=== PATIENT | female | born 1975 | race Caucasian/White ===

== ENCOUNTER 2021-07-25 16:17 | Emergency (ER) | payer OTHER ==
[2021-07-25 16:32] VITALS: BP 141/85
--- OUTSIDE RECORDS SUMMARY | 2021-07-25 16:42 | EXTERNAL MEDICAL SUMMARY RPT | Continuity of Care Document ---
:1975 Author Organization [facility] Address [address] [place] [address] Phone Care Team Providers Name Role Phone OR, Krista Fitzgerald RN, Unavailable Unavailable Allergies No information. Encounters No information. Medications date description facility [id number] diclofenac sodium All [id number] hydrocortisone-pramoxine All [id number] loratadine All [id number] fluticasone propionate All [id number] sodium,potassium,mag sulfates All Problems date description facility [id number] Unspecified lump in unspecified breast All [id number] Unspecified hemorrhoids All [id number] Unspecified hemorrhoids without mention of complication All 20210524 Plantar fasciitis All [id number] Plantar fascial fibromatosis All [id number] Personal history of other genital syste m and obstetric All disorders 20210524 Personal history of gestational diabete s All 20210524 Lump or mass in breast All 20210524 History of gestational diabetes mellitu s All 20210524 Hemorrhoids All [id number] Eczema All 20210524 Dermatitis, unspecified All 20210524 Contact dermatitis and other eczema, un specified cause All [id number] Breast lump All Results No information.
[2021-07-25] MEDS ORDERED: TETANUS/DIPHTHERIA/PERTUSSIS 0.5 ML SYRINGE IM ONE (16:49)
--- NOTE | 2021-07-25 16:50 | ED Physician Documentation ---
PD HPI UPPER EXT INJURY - Stated complaint Stated Complaint: R HAND INJ - Chief complaint Chief Complaint: Trauma Ext - History obtained from History obtained from: Patient - Additonal information Additional information: Right-handed woman was taking her yard waste container out and tripped and fell over her lid. She landed on both knees and the right hand. The knees do not hurt much but she has significant pain of the third through fifth digits of the right hand. No other injuries. Declines pain medication on initial evaluation. Review of Systems Constitutional: reports: Reviewed and negative Eyes: reports: Reviewed and negative Cardiac: reports: Reviewed and negative Respiratory: reports: Reviewed and negative PD PAST MEDICAL HISTORY - Past Surgical History Past Surgical History: No - Present Medications Home Medications: Ambulatory Orders Medication Instructions Recorded Confirmed cephALEXin [Keflex] 500 mg PO Q6H 7 Days capsule 04/24/14 - Allergies Allergies/Adverse Reactions: Allergies Allergy/AdvReac Type Severity Reaction Status Date / Time No Known Drug Allergies Allergy Verified 07/25/21 16:32 - Social History Does the pt smoke?: No Smoking Status: Never smoker Does the pt drink ETOH?: No Does the pt have substance abuse?: No PD ED PE NORMAL - Vitals Vital signs reviewed: Yes - General General: Alert and oriented X 3, No acute distress - Neck Neck: Supple, no meningeal sign, No bony TTP - Extremities Extremities: Other (She has abrasions over the PIPs of the third and fourth fingers of the right hand and quite tender there. Also some tenderness over the fifth digit. First and second digits are nontender. Both knees have very small abrasions but nontender with full range of motion.) - Neuro Neuro: Alert and oriented X 3, Normal speech - Psych Psych: Normal mood, Normal affect Results - Vitals Vitals: Vital Signs - 24 hr 07/25/21 16:27 Temperature 36.4 C L Heart Rate 77 Respiratory 14 Rate Blood Pressure 141/85 H O2 Saturation 95 Oxygen O2 Source Room air - Rads (name of study) Three-view x-ray of the right hand is unremarkable Radiology: EMP read contemporaneously PD MEDICAL DECISION MAKING - ED course ED course: 46-year-old woman with hand abrasions and tenderness after falling. She hit her knees but those really are not tender they do have tiny abrasions. The x-ray of the hand was unremarkable and the wounds on the dorsum of her fingers were cleansed and dressed. Tetanus was updated. Departure - Departure Disposition: 01 Home, Self Care Clinical Impression: Contusion of right hand Qualifiers: Encounter type: initial encounter Qualified Code(s): S60.221A - Contusion of right hand, initial encounter Abrasion of right hand Qualifiers: Encounter type: initial encounter Qualified Code(s): S60.511A - Abrasion of right hand, initial encounter Condition: Good Record reviewed to determine appropriate education?: Yes Instructions: ED Abrasion Comments: You can wash the abrasions with soap and water. Return for new or worsening symptoms, ice and elevate. Follow-up with your doctor in a week if not better. Discharge Date/Time: 07/25/21 17:40
--- NOTE | 2021-07-25 18:03 | XRAY Report ---
PROCEDURE: Hand 3 View RT INDICATIONS: Trauma, pain TECHNIQUE: 3 views of the hand(s) acquired. COMPARISON: FINDINGS: Bones: No fractures or dislocations. No suspicious bony lesions. Soft tissues: No suspicious soft tissue calcifications. IMPRESSION: Unremarkable right hand radiographs Reviewed by: Jarrett Baldwin MD on 07/25/2021 5:02 PM [facility] Approved by: Jarrett Baldwin MD on 07/25/2021 5:02 PM [facility] Station ID: [id number]
== END 2021-07-25 17:40 | disposition home or self-care (01) ==
LOC: ED 16:17
DX: S09.90XA Unspecified injury of head, initial encounter (principal); W01.198A Fall on same level from slipping, tripping and stumbling with subsequent striking against other object, initial encounter; Y93.H9 Activity, other involving exterior property and land maintenance, building and construction; Z23 Encounter for immunization; Z71.85 Encounter for immunization safety counseling
CPT/HCPCS: 90471; 99282; 99283

== ENCOUNTER 2021-08-31 06:34 | Day surgery (SDC) | payer OTHER ==
[2021-08-31] MEDS ORDERED: LACTATED RINGERS 1,000 ML IV ONE ×2 (07:02→08:04)
[2021-08-31] MEDS ORDERED: PROPOFOL 500 MG/50 ML 500 MG/50 ML VIAL ONE (07:09)
--- NOTE | 2021-08-31 07:09 | ANESTHESIA ---
Pre-Anesthesia VS, & Labs - Diagnosis screening - Procedure colonoscopy Vital Signs: Temp Pulse Resp BP Pulse Ox 36.4 C L 75 14 129/96 H 97 08/31/21 06:35 08/31/21 06:35 08/31/21 06:35 08/31/21 06:35 08/31/21 06:35 Height: 5 ft 2 in Weight (kg): 78.5 kg Body Mass Index: 31.6 BMI Classification: Obese - NPO >8 hours - Is Patient ?: No - Lab Results Current Lab Results: Laboratory Tests 08/31/21 06:56: POC Whole Bld Glucose 148 H Lab results reviewed: Yes Home Medications and Allergies Home Medications: Ambulatory Orders Atorvastatin [Lipitor] 10 mg PO DAILY 08/30/21 metFORMIN [Glucophage] 500 mg PO DAILY 08/30/21 Atorvastatin [Lipitor] 10 mg PO DAILY 08/30/21 metFORMIN [Glucophage] 500 mg PO DAILY 08/30/21 Allergies/Adverse Reactions: Allergies Allergy/AdvReac Type Severity Reaction Status Date / Time No Known Drug Allergies Allergy Verified 07/25/21 16:32 Anes History & Medical History - Anesthetic History Anesthesia Complications: reports: No previous complications Family history of Anesthesia Complications: Denies Family history of Malignant Hyperthermia: Denies - Medical History Cardiovascular: reports: High cholesterol Pulmonary: reports: None Gastrointestinal: reports: None Urinary: reports: None Musculoskeletal: reports: None Endocrine/Autoimmune: reports: Type 2 diabetes Skin: reports: Eczema Smoking Status: Never smoker - Surgical History Gynecologic: reports: Tubal ligation, Other Exam General: Alert, Oriented x3, Cooperative Dental: WNL Mouth Openin Fingerbreadth Neck Mobility: Normal Mallampati classification: II Thyromental Distance: 4-6 cm Respiratory: Lungs clear, Normal breath sounds, No respiratory distress Cardiovascular: Regular rate Neurological: Normal speech Mental/Cognitive Status: Alert/Oriented X3, Normal for patient Plan Anesthesia Type: Total IV Consent for Procedure(s) Verified and Reviewed: Yes Code Status: Attempt Resuscitation ASA classification: 2-Mild systemic disease Is this case an emergency?: No
[2021-08-31] MEDS ORDERED: MIDAZOLAM 2 MG/2 ML VIAL ONE (07:10)
--- NOTE | 2021-08-31 07:22 | HISTORY & PHYSICAL EXAMINATION ---
Chief Complaint - Chief Complaint Chief Complaint: here for colon cancer screening History of Present Illness - History Obtained From Records Reviewed: yes History obtained from: pt Exam Limitations: none - History of Present Illness HPI Comment/Other: here for colon cancer screening. no problems. negative family history. History - Past Medical History Cardiovascular: reports: High cholesterol Respiratory: reports: None Endocrine/Autoimmune: reports: Type 2 diabetes GI: reports: None : reports: None HEENT: reports: None Psych: reports: None Musculoskeletal: reports: None Derm: reports: Eczema MRSA Hx?: No - Past Surgical History /[employer]APE[employer] SALES [employer]: reports: Tubal ligation, Other Meds/Allgy - Home Medications Home Medications: Ambulatory Orders Medication Instructions Recorded Confirmed Atorvastatin [Lipitor] 10 mg PO DAILY 08/30/21 08/30/21 metFORMIN [Glucophage] 500 mg PO DAILY 08/30/21 08/30/21 - Allergies Allergies/Adverse Reactions: Allergies Allergy/AdvReac Type Severity Reaction Status Date / Time No Known Drug Allergies Allergy Verified 07/25/21 16:32 Review of Systems - Other Findings Other Findings: 10 pt ros as above otherwise unremarkable Exam - Vital Signs Reviewed Vital Signs: Yes Vital Signs: Vital Signs x48h Temp Pulse Resp BP Pulse Ox 08/31/21 06:35 36.4 C L 75 14 129/96 H 97 - Physical Exam General Appearance: positive: No acute distress, Alert Eyes Bilateral: positive: PERRL, EOMI, No scleral icterus ENT: positive: No signs of dehydration Neck: positive: No JVD, Trachea midline Respiratory: positive: No respiratory distress Cardiovascular: positive: Regular rate & rhythm Abdomen: positive: Non-tender, No distention Neurologic/Psychiatric: positive: Oriented x3 Conclusion/Plan - Problem List (1) Colon cancer screening Conclusion/Plan: plan colonoscopy. parq held and consent obtained - Lab Results Lab results reviewed: Yes
[2021-08-31] MEDS ORDERED: PROPOFOL 200 MG/20 ML VIAL IVP ONE (07:59)
[2021-08-31 08:42] VITALS: BP 131/95
--- NOTE | 2021-08-31 09:50 | ANESTHESIA POST OP EVALUATION ---
Anesthesia Post Eval - Post Anesthesia Eval Vitals: Last Vital Signs Temp 36.3 C L 08/31/21 08:41 Pulse 67 08/31/21 08:41 Resp 16 08/31/21 08:41 BP 131/95 H 08/31/21 08:41 Pulse Ox 100 08/31/21 08:41 CV Function Including HR & BP: Stable Pain Control: Satisfactory Nausea & Vomiting: Negative Mental Status: Baseline Respiratory Status: Airway Patent Hydration Status: Satisfactory Anesthesia Complications: None
== END 2021-08-31 06:35 | disposition home or self-care (01) ==
LOC: SDS 06:34
PROVIDERS: ATTEND Surgery
PROC: 0DBN8ZX Excision of Sigmoid Colon, Via Natural or Artificial Opening Endoscopic, Diagnostic (ICD-10-PCS; 2021-08-31)
PROC: 0DBP8ZX Excision of Rectum, Via Natural or Artificial Opening Endoscopic, Diagnostic (ICD-10-PCS; principal; 2021-08-31 07:30)
DX: Z12.11 Encounter for screening for malignant neoplasm of colon (principal); D12.5 Benign neoplasm of sigmoid colon; D12.8 Benign neoplasm of rectum; E11.9 Type 2 diabetes mellitus without complications; Z68.31 Body mass index [BMI] 31.0-31.9, adult; Z79.84 Long term (current) use of oral hypoglycemic drugs
CPT/HCPCS: 45385; J7120

== ENCOUNTER 2023-03-18 08:15 | Outpatient (CLI) | payer OTHER ==
[2023-03-18 11:56] LABS: BASOPHILS % (AUTO) 0.4 %; EOSINOPHILS # (AUTO) 0.1 10^3/uL (0.0-0.7); EOSINOPHILS % (AUTO) 1.3 %; HCT - HEMATOCRIT 43.2 % (37.0-47.0); LYMPHOCYTES # (AUTO) 1.3 10^3/uL (1.5-3.5); LYMPHOCYTES % (AUTO) 13.7 %; MEAN CORPUSCULAR HEMOGLOBIN 28.3 pg (27.0-31.0); MEAN CORPUSCULAR HGB CONC 32.4 g/dL (32.0-36.0); MEAN CORPUSCULAR VOLUME 87.3 fL (81.0-99.0); MEAN PLATELET VOLUME 9.3 fL (7.9-10.8); MONOCYTES # (AUTO) 0.4 10^3/uL (0.0-1.0); MONOCYTES % (AUTO) 3.7 %; NEUTROPHILS # (AUTO) 7.8 10^3/uL (1.5-6.6); NEUTROPHILS % (AUTO) 80.7 %; PLT - PLATELET COUNT 271 10^3/uL (130-450); RED BLOOD COUNT 4.95 10^6/uL (4.20-5.40); RED CELL DISTRIBUTION WIDTH 12.6 % (12.0-15.0); WHITE BLOOD COUNT 9.6 x10^3/uL (4.8-10.8)
[2023-03-18 12:34] LABS: ALBUMIN 4.3 g/dL (3.2-5.5); ALBUMIN/GLOBULIN RATIO 1.3 (1.0-2.2); ALKALINE PHOSPHATASE 49 IU/L (42-121); ALT ALANINE AMINOTRANSFERASE 24 IU/L (10-60); AST ASPARTATE AMINOTRANSFERASE 15 IU/L (10-42); BILIRUBIN,TOTAL 0.5 mg/dL (0.2-1.0); BUN - BLOOD UREA NITROGEN 11 mg/dL (6-20); CARBON DIOXIDE - CO2 25 mmol/L (21-32); CHLORIDE 102 mmol/L (101-111); CHOLESTEROL 166 mg/dL; CREATININE 0.6 mg/dL (0.6-1.3); GFR - MDRD 106 (>89); GLUCOSE 130 mg/dL (74-104); HDL CHOLESTEROL 55 mg/dL; LDL CHOLESTEROL,CALCULATED 84 mg/dL; LDL/HDL RATIO 1.5 (<4.4); POTASSIUM 3.7 mmol/L (3.5-4.5); SODIUM 139 mmol/L (135-145); TOTAL PROTEIN 7.5 g/dL (6.4-8.9); TRIGLYCERIDES 134 mg/dL (48-352); VLDL CHOLESTEROL 27 mg/dL
[2023-03-18 12:47] LABS: ESTIMATED AVERAGE GLUCOSE 148 mg/dL (70-100); HEMOGLOBIN A1c% 6.8 % (4.27-6.07)
[2023-03-18 19:47] LABS: THYROID STIMULATING HORMONE 1.43 uIU/mL (0.34-5.60)
== END 2023-03-18 08:30 | disposition home or self-care (01) ==
LOC: LAB.N 08:15
PROVIDERS: ATTEND Specialist
DX: E11.9 Type 2 diabetes mellitus without complications (principal)
CPT/HCPCS: 36415; 80053; 80061; 83036; 83721; 84443; 85025

== ENCOUNTER 2023-03-25 14:06 | Emergency (ER) | payer OTHER ==
[2023-03-25 14:38] VITALS: O2SAT 100
--- NOTE | 2023-03-25 14:40 | ED Physician Documentation ---
PD HPI URI - Stated complaint Stated Complaint: COUGH,SORE THROAT,WEAKNESS - Chief complaint Chief Complaint: Heent - History obtained from History obtained from: Patient - History of Present Illness Timing - onset: How many weeks ago (2) Timing duration: Weeks (2) Timing details: Gradual onset, Still present (persistent cough and sore throat with dyspnea and whezing for 2 weeks. Seen [facility] twice with neg COVID/RSV testing and rapid strep tests. Rx with Albuterol and codeine cough medication without improvement overall, but less wheezing with inhaler.) Associated symptoms: Sinus pain, Sore throat, Dry cough, Dyspnea Contributing factors: No: Sick contact, Travel, Immunocompromised, COPD / asthma Similar symptoms before: Has not had sx before Recently seen: Clinic (walk in clinic) Review of Systems Constitutional: reports: Myalgias. denies: Fever, Chills Nose: reports: Sinus pressure / pain Throat: reports: Sore throat Cardiac: denies: Chest pain / pressure Respiratory: reports: Dyspnea, Cough, Wheezing GI: denies: Vomiting, Diarrhea Skin: denies: Rash, Lesions PD PAST MEDICAL HISTORY - Past Medical History Past Medical History: No Respiratory: None Neuro: None - Past Surgical History Past Surgical History: No - Present Medications Home Medications: Ambulatory Orders Medication Instructions Recorded Confirmed Atorvastatin [Lipitor] 10 mg PO DAILY 08/30/21 08/30/21 metFORMIN [Glucophage] 500 mg PO DAILY 08/30/21 08/30/21 Amoxicillin 500 mg PO TID #15 cap 03/25/23 dexAMETHasone [Decadron] 4 mg PO DAILY #5 tablet 03/25/23 guaiFENesin/CODEINE [Robitussin AC] 10 ml PO Q6H PRN #240 ml 03/25/23 - Allergies Allergies/Adverse Reactions: Allergies Allergy/AdvReac Type Severity Reaction Status Date / Time No Known Drug Allergies Allergy Verified 03/25/23 14:26 - Social History Does the pt smoke?: No Smoking Status: Never smoker Does the pt drink ETOH?: No Does the pt have substance abuse?: No - Immunizations Immunizations are current?: Yes - POLST Patient has POLST: No PD ED PE NORMAL - Vitals Vital signs reviewed: Yes - General General: Alert and oriented X 3, No acute distress, Well developed/nourished - HEENT HEENT: Ears normal, Pharynx benign - Neck Neck: Supple, no meningeal sign, No adenopathy - Cardiac Cardiac: RRR, No murmur - Respiratory Respiratory: No respiratory distress. No: Clear bilaterally (some exp wheezing noted. no coarse sounds. ) - Derm Derm: Normal color, Warm and dry Results - Vitals Vitals: Oxygen O2 Source Room air PD Medical Decision Making - ED course Complexity details: considered differential (has had ongoing cough and sore throat for 2-3 weeks with negative COVID and RSV tests, and neg strep test. Has persistent symptoms despite Tessalon and Albuterol. ), d/w patient Departure - Departure Disposition: Home, Self Care Clinical Impression: Cough, Dyspnea, Lower resp. tract infection Condition: Stable Record reviewed to determine appropriate education?: Yes Prescriptions: Amoxicillin 500 mg PO TID #15 cap dexAMETHasone [Decadron] 4 mg PO DAILY #5 tablet guaiFENesin/CODEINE [Robitussin AC] 10 ml PO Q6H PRN #240 ml PRN Reason: Cough Comments: Continue using your albuterol inhaler 2 to 3 puffs 4 times daily at home for the next several days to week. Use a spacer chamber as that seemed to provide a better improvement. Also add Decadron steroid anti-inflammatory for the bronchioles daily for 5 more days. Given the prolonged coughing and breathing etc., it could be that you have a second viral type illness on top of the first. Other consideration would be a secondary bacterial bronchitis. We can add amoxicillin antibiotic in case. I prescribed some more of the codeine cough medicine. I sent these prescriptions to your preferred pharmacy. I would anticipate improvement over the next few days with this combination. Forms: PCP List Discharge Date/Time: 03/25/23 15:51
[2023-03-25] MEDS ORDERED: ALBUTEROL 1 PUFF INH STA (15:05)
[2023-03-25] MEDS ORDERED: AMOXICILLIN 250 MG CAPSULE PO STA (15:05)
[2023-03-25] MEDS ORDERED: dexAMETHasone 4 MG TABLET PO STA (15:05)
[2023-03-25 15:53] VITALS: BP 130/88
== END 2023-03-25 15:51 | disposition home or self-care (01) ==
LOC: ED 14:06
DX: J22 Unspecified acute lower respiratory infection (principal)
CPT/HCPCS: 94640; 99283; A9270; J8540